=== PATIENT | female | born 1960 ===

== ENCOUNTER → 2024-10-09 09:21 | Outpatient (REF) | payer OTHER, SELFPAY | LOC: RAD 09:21 | PROVIDERS: ATTENDING PHYSICIAN Internal Medicine Hematology & Oncology; FAMILY PHYSICIAN Family Medicine | DX: C50.911 Malignant neoplasm of unspecified site of right female breast (principal); C50.912 Malignant neoplasm of unspecified site of left female breast; Z79.811 Long term (current) use of aromatase inhibitors; Z15.09 Genetic susceptibility to other malignant neoplasm | CPT/HCPCS: 74170; Q9967 ==